=== PATIENT | female | born 1945 | race Caucasian/White ===

== ENCOUNTER 2019-08-10 15:39 | Outpatient (CLI) | payer MEDICARE, OTHER, SELFPAY ==
--- NOTE | 2019-08-10 15:45 | USR_ITS ---
PROCEDURE INFORMATION: Exam: US Retroperitoneal Complete. Exam date and time: 08/10/2019 4:46 PM Age: 73 years old Clinical indication: Condition or disease; Kidney or ureter condition; Cyst of kidney; Additional info: Renal cyst TECHNIQUE: Imaging protocol: Real-time ultrasound of the retroperitoneum with image documentation. Complete exam. COMPARISON: No relevant prior studies available. FINDINGS: The size and morphology of both kidneys is normal. The echogenicity is normal. No hydronephrosis. No mass. No perinephric fluid collections. Right kidney: Right kidney 9.8 x 4.5 x 4.6 cm. Left kidney: Left kidney 9.9 x 4.6 x 3.9 cm Aorta: Visualized portions of the aorta non-aneurysmal Bladder: Non-distended bladder. No free fluid in the pelvis. US/US renal BI* [id number] IMPRESSION: Unremarkable renal ultrasound
== END 2019-08-10 15:40 | disposition home or self-care (01) ==
PROVIDERS: Family Provider Student in an Organized Health Care Education/Training Program; PCP Student in an Organized Health Care Education/Training Program; Visit Provider Student in an Organized Health Care Education/Training Program
DX: N28.1 Cyst of kidney, acquired (principal)
CPT/HCPCS: 76770

== ENCOUNTER → 2019-08-17 14:22 | Outpatient (BNVA) | payer MEDICARE, OTHER, SELFPAY | PROVIDERS: Family Provider Student in an Organized Health Care Education/Training Program; PCP Student in an Organized Health Care Education/Training Program; Visit Provider Urology | DX: N28.9 Disorder of kidney and ureter, unspecified (principal); N99.89 Other postprocedural complications and disorders of genitourinary system | CPT/HCPCS: 81001 ==

== ENCOUNTER 2019-09-13 10:33 | Observation (INO) | payer MEDICARE, OTHER, SELFPAY ==
[2019-09-12 11:28] VITALS: BMI 33.3
--- NOTE | 2019-09-12 12:06 | ANES.PREANE2 ---
Pre-Anesthetic Assessment Pre-Anesthetic Assessment: Height/Weight: Height 1.57 m Weight 82.724 kg Preop Diagnosis: Lumbar postlaminectomy syndrome Proposed Procedure: Operation Date: 09/13/19 08:10 Proposed Procedures p Dorsal Column Stimulator Insertion 17267 M96.1(Bilateral) - Humble Ramos MD Exam: Pre-Anes Outpt Exam: alert, oriented x 3, clear to auscultation bilaterally and regular rate & rhythm Airway: Submandibular: WNL Cervical ROM: WNL MP: 1 CV/HEM: CV/HEM: HTN Comments: rx'd 42years stress test '05 negative GI: GI: GERD Comments: controlled with Protonix Metabolic: Metabolic: DM Comments: rx'd x 10y normally 140-220 Musc/skel: Musc/skel: Lower Back Pain Comments: left worse than right radiculopathy Anesthetic Plan: ASA status: III Anesthesia: MAC PFSH Anesthesia PFSH: Medical History (Updated 08/28/19 @ 12:23 by Humble Ramos MD) GERD (gastroesophageal reflux disease) (Acute) Hypertension (Acute) Lesion of right [place] kidney (Acute) Lumbar disc disease (Acute) Lumbar postlaminectomy syndrome (Acute) Type 2 diabetes mellitus (Acute) Surgical History (Updated 08/28/19 @ 12:23 by Humble Ramos MD) History of back surgery (Chronic) 2003; [place], [place]; T11-L1 laminectomies. 1996; [place]; right L3-L4, L4-L5 decompression. Social History Smoking and tobacco status: never smoked Alcohol intake: never Lives independently: Yes Household members: spouse Marital status: Current occupational status: retired Current occupation: retired History of recent travel: No Female Reproductive History: Date of last menstrual period: 09/10/09 Data Anesthesia Cardiac Studies: No Data to Display
[2019-09-13] VITALS (15 sets, daily range): BP systolic 117–135; BP diastolic 50–86; PULSE 53–84; RESP 12–20; TEMP 36.4–36.6; O2SAT 95–100
--- NOTE | 2019-09-13 | SCC_ITS ---
Procedure Done: 1. Thoracic laminotomy with placement of intraspinal, epidural paddle electrode arrays. 2. Placement of subcutaneous programmable pulse generator with connection to intraspinal epidural electrode arrays. Implants: [employer] CoverEdge X 32 marketing team lead [employer] WaveWriter pulse generator 13.9 seconds of fluoroscopic guidance, for a cumulative dose of 6.58 mGy, was provided to Dr. Ramos by the radiology department. C-arm images of the thoracic spine were saved for the patient's permanent record. VIANNEY
--- NOTE | 2019-09-13 | XR_ITS ---
WS: [id number] Thoracic spine, AP view with C-arm fluoroscopy in the OR, 09/13/2019 Clinical Data: DORSAL COLUMN STIMULATOR Comparison: None. Findings: The dorsal column stimulator wires are overlying the the inferior aspect of the T7 vertebral body abiodun n to the midportion of the T10 vertebral body. XR/XR thoracic spine 1V [id number] Impression: Dorsal column stimulator wires overlying thoracic vertebral bodies T7-T10
--- NOTE | 2019-09-13 07:08 | P.HPUD_ITS ---
H&P update H&P Update: DATE OF SURGERY/PROCEDURE: 09/13/19 DATE H&P PERFORMED: 10/25 H&P UPDATE INFORMATION: H&P completed within last 30 days and H&P to be scanned into chart PREOP DIAGNOSIS: Lumbar postlaminectomy syndrome PRIMARY INDICATION FOR PROCEDURE: Intractable back and bilateral lower extremity pain PLANNED PROCEDURE: Operation Date: 09/13/19 08:10 Proposed Procedures Placement of intraspinal, epidural paddle electrode arrays and subcutaaneous programmable pulse generator - Humble Ramos MD Full H&P Perinent History: Medical/Surgical History: Medical History (Updated 08/28/19 @ 12:23 by Humble Ramos MD) GERD (gastroesophageal reflux disease) (Acute) Hypertension (Acute) Lesion of right [place] kidney (Acute) Lumbar disc disease (Acute) Lumbar postlaminectomy syndrome (Acute) Type 2 diabetes mellitus (Acute) Family History: Family History (Updated 07/13/19 @ 14:39 by [facility]) Other No pertinent family history Social History: Social History Smoking and tobacco status: never smoked Alcohol intake: never Lives independently: Yes Household members: spouse Marital status: Current occupational status: retired Current occupation: retired History of recent travel: No
[2019-09-13 07:11] LABS: Glucose Point of Care 160 mg/dL (70-110)
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
[2019-09-13] MEDS: vancomycin 1,000 MG in sodium chloride 0.9% 250 ML 250 MG IV (07:19)
[2019-09-13] MEDS: sodium chloride 0.9% 1,000 ML 30 ML IV (07:20)
--- NOTE | 2019-09-13 07:20 | P.ANESUD_ITS ---
Pre-Anesthetic Update Pre-Anesthetic Assessment: Date of Surgery/Procedure: 09/13/19 Preop Cyn gnosis: Lumbar postlaminectomy syndrome Proposed Procedure: Operation Date: 09/13/19 08:10 Proposed Procedures p Dorsal Column Stimulator Insertion 31372 M96.1(Bilateral) - Humble Ramos MD Any changes to Pre-Anesthetic Assessment?: No Last Intake: Intake Last Liquid Date 09/13/19 Last Liquid Time 05:00 Last Solid Date 09/12/19 Last Solid Time 23:00 Labs Last 48hrs: Laboratory Results - last 48 hr 09/13/19 07:08 POC Glucose 160 Vitals: Temperature 97.7 F 09/13/19 06:49 Temperature Source Temporal Artery S can 09/13/19 06:49 Pulse Rate 61 09/13/19 06:49 Respiratory Rate 18 09/13/19 06:49 Blood Pressure 123/79 09/13/19 06:49 Blood Pressure Sugar n 93 09/13/19 06:49 Pulse Oximetry 97 09/13/19 06:49 Oxygen Delivery Me thod 09/13/19 06:49 Other Pertinent Information: Other Pertinent Information: took metoprolol this am Cardiac Studies: No Data to Display
--- NOTE | 2019-09-13 08:29 | P.OP_ITS ---
Brief Operative Note: Date of procedure: 09/13/19 Pre-op diagnosis: Lumbar postlaminectomy syndrome Post-op diagnosis: same Procedure Done: Thoracic laminotomy for placement of intraspinal, epidural paddle electrode arrays, placement of subQ pulse generator Surgeon: Humble Ramos Estimated blood loss (mL): 25 Complications: None. Post-op Plan: PACU, then surgical j[place]ston Condition: stable Disposition: PACU Coding Level of Care Code Acute Executive Meeting Manager for Vera Willingham
--- NOTE | 2019-09-13 09:17 | SUR.OPER ---
Family Notified Of Patient's Status Via Phone.
--- NOTE | 2019-09-13 10:16 | SUR.OPER ---
Family Notified Of Patient's Status Via Phone.
--- NOTE | 2019-09-13 10:44 | SUR.PHASEI ---
1040- RECEIVED PATIENT IN PACU FROM OR VIA [facility]. RESP ARE EVEN AND NONLABORED. SIMPLE MASK APPLIED AT 6LPM, SAT 100%. SHE IS AROUSABLE BUT LETHARGIC. DRESSING TO BACK IS DRY AND INTACT. NO S/S PAIN OR NAUSEA.
--- NOTE | 2019-09-13 11:41 | SUR.PHASEI ---
1103- TRANSFERRED PATIENT FROM PACU TO . RESP ARE EVEN AND NONLABORED. SAT 96% WITH ROOM AIR. SHE IS AWAKE AND ALERT. DRESSING TO BACK X2 DRY AND INTACT. SHE REPORTS PAIN TO BACK IMPROVES WITH LAYING ON HER SIDE. DENIES NAUSEA. UPON ARRIVAL TO ROOM SHE IS ASSISTED TO AMBULATE X2 STAFF TO THE BED. SHE TOLERATES THIS FAIR WITH S/S MODERATE TO SEVERE PAIN WITH REPOSITIONING. THIS IMPROVES WITH REST. VITALS NORMAL WHILE SHE RETURNS TO RESTING ON HER LEFT SIDE IN BED. TRANSITION OF CARE TO MELISSA ROSALES
[2019-09-13] MEDS: ketorolac 30 mg/mL INJ 15 MG IVP (11:46)
[2019-09-13] MEDS: lactated ringers 1,000 ML 90 ML IV (11:46)
--- NOTE | 2019-09-13 14:12 | P.DS_ITS ---
Discharge Providers Date of Admission: 09/13/19 10:33 Date of Discharge: September 13, 2019 Attending Provider at Admission: Humble Basilio MD Attending Provider at Discharge: Humble Basilio MD Primary Care Provider: Jhonatan Stern Diagnoses at Discharge Discharge Diagnosis (1) Lumbar postlaminectomy syndrome: Status: Acute Problem details: Patient is doing well after thoracic spinal cord stimulator implantation via laminotomy performed earlier today. She appears reasonable for discharge home, as desired. Reason for Visit Reason for Visit: Reason For Visit: Lumbar Post Laminectomy Sydnrome Brief History: The patient is a 73-year-old female with chronic low back and bilateral lower extremity pain that failed to respond adequately to conservative treatment measures. She had undergone prior lower thoracic and lumbar surgeries. She complained of low back pain and bilateral lower extremity pain. She underwent diagnostic work-up, including thoracic and lumbar spine imaging. Conservative treatment trials failed to provide adequate lasting symptom relief. She obtained marked relief of chronic low back and lower extremity pain during a percutaneous trial of thoracic spinal cord stimulation. After review of the diagnostic and treatment options with the risks/potential benefits/rationale for each, the patient requested to proceed with placement of epidural paddle electrode arrays and a subcutaneous programmable pulse generator for chronic spinal cord stimulation therapy. Hospital Course Hospital Course: The patient underwent thoracic laminotomy with placement of intraspinal, epidural paddle lead arrays and placement of subcutaneous programmable pulse generator on 09/13/2019. She tolerated the procedure well. She completed preoperative and postoperative intravenous antibiotics. She was ambulatory, voiding, and tolerating diabetic diet prior to requested discharge home on the afternoon of the date of surgery. Physical Exam Const: COMMON NORMALS: no apparent distress GENERAL APPEARANCE: cooperative and comfortable Neck/C-Spine: COMMON NORMALS: supple and no JVD GENERAL: Yes trachea mi dline Resp: COMMON NORMALS: normal respiratory effort EFFORT & INSPECTION: Yes able to speak in complete sentences and No stridor Cardio: COMMON NORMALS: no JVD Back/Pelvis: BACK IMAGE (FEMALE): 1. surgical incision 2. surgical incision Neuro: COMMON NORMALS: moves all extremities GAIT: Yes other (ambulatory) Psych: ATTITUDE: Yes calm and Yes engaged ACTIVITY/MOTOR BEHAVIOR: Yes appropriate eye contact ATTENTION/CONCENTRATION: Yes attention grossly intact INSIGHT: insight good JUDGEMENT: judgment good Skin: WOUNDS: Yes surgical site (Surgical site dressings clean/dry/intact) Discharge Data Data Completed and Pending: Completed Studies During Hospitalization Category Date Time Status XR thoracic spine 1V 30116 Routine Exams 09/13/19 Completed Addt'l Data from Hospital Stay: Intraoperative fluoroscopy, with paddle lead extending from T6-T7 across T8 in a near midline position. Procedures Performed: Thoracic laminotomy for placement of intraspinal epidural paddle electrode arrays ([employer] CoverEdge X32 certified ophthalmic surgical assistant. Placement of subcutaneous programmable pulse generator ([employer] SpectraWaveWriter). Intravenous antibiotics. Vitals: Last Vital Signs Temp 97.6 F 09/13/19 18:07 Pulse 54 L 09/13/19 18:07 Resp 18 09/13/19 18:07 BP 117/71 09/13/19 18:07 Pulse Ox 98 09/13/19 18:07 Discharge Plan Discharge Patient Disposition: Home, Self-Care Condition: Stable Prescriptions: New tramadol 50 mg Tablet 50 - 100 mg PO Q4H PRN (Reason: Moderate Pain) Qty: 30 RF: 0 Continued gabapentin 300 mg capsule 300 mg PO DAILY PRN (Reason: pain) RF: 0 naproxen 250 mg tablet 250 mg PO BID PRN (Reason: Pain) RF: 0 metoprolol succinate 100 mg tablet extended release 24 hr 100 mg PO DAILY RF: 0 losartan-hydrochlorothiazide 50-12.5 mg tablet 1 tab PO DAILY RF: 0 pantoprazole 40 mg tablet,delayed release (DR/EC) 40 mg PO DAILY RF: 0 Farxiga 10 mg tablet 10 mg PO QAM RF: 0 Toujeo Max U-300 SoloStar 300 unit/mL (3 mL) insulin pen 75 unit SUBCUT Q24H RF: 0 furosemide 40 mg tablet 40 mg PO QAM RF: 0 cinnamon bark 500 mg capsule 500 mg PO BID RF: 0 red yeast rice 600 mg capsule 600 mg PO BID RF: 0 cholecalciferol (vitamin D3) 1,000 unit capsule 1,000 unit PO DAILY RF: 0 magnesium 30 mg tablet 500 mg PO DAILY RF: 0 coenzyme Q10 [Co Q-10] 10 mg capsule 10 mg PO DAILY RF: 0 vitamin B complex [B Complex-Vitamin B12] Tablet 1 tab PO QAM RF: 0 Cholest Off 450 mg tablet 450 mg PO DAILY RF: 0 PreserVision tablet 1 tab PO DAILY RF: 0 Discharge Orders: Discharge Order (Routine); Ordered 09/13/19 Ordered By: Humble Basilio Referrals: Humble Basilio MD [Physician] - 2 weeks (please call for appointment with dr basilio) Discharge Diet: Diabetic Discharge Activity: Limit activity as instructed Patient Instructions: Back Pain, Tramadol (By mouth), Spinal Cord Stimulator Placement (DC) Activity Restrictions/Additional Instructions: Activity - No driving until office followup visit - No lifting/pushing/pulling over 10 pounds - Avoid twisting or bending - Walking is encouraged - Home exercise per physical therapist - You may engage in sexual intercourse at any time as long as it is comfortable for you - Check with your doctor before returning to work. Notify your doctor if you develop: - temperature of 101.5 degrees F. or higher - redness or swelling of the incision - Foul drainage - increasing pain - increasing numbness or tingling in the arms or legs - New or increasing problems with vision, balance, memory, speaking, nausea or vomiting Hygiene: - Showering is okay - No tub baths or soaking Other: Remove outer bandage 3 days after surgery. If you have paper strips, leave in place until they fall off on their own. If you have stitches, keep your incision dry until the stitches are removed. Your doctor's office is available to answer any questions from 7 AM to 5:00 PM, Tuesday through at [phone]. After hours, go to the emergency room at [facility] or call 911 for assistance. Discharge Date/Time: 09/13/19 20:31 Discharge Attestations Time Spent in Discharge Care*: other (postop global) Quality Metrics Clinical Quality Measures During this hospital stay, did patient experience: None Coding Level of Care Code Acute Packing Machine Feeder for Chg Fwd Exam Problem Focused Diagnoses Lumbar postlaminectomy syndrome M96.1 Comment postop global
--- NOTE | 2019-09-13 18:00 | P.OP_ITS ---
Operative Report Date of procedure: September 13, 2019 Pre-op Diagnosis: Lumbar postlaminectomy syndrome Post-op diagnosis: same Procedure Done: 1. Thoracic laminotomy with placement of intraspinal, epidural paddle electrode arrays. 2. Placement of subcutaneous programmable pulse generator with connection to intraspinal epidural electrode arrays. Implants: [employer] CoverEdge X 32 surgical oncologist [employer] Spectra WaveWriter pulse generator Surgeon: Humble Ramos Anesthesia: MAC Estimated blood loss (mL): 25 IV fluids (mL): 800 Complications: None Condition: stable Disposition: PACU Brief History: The patient is a 73-year-old female with chronic low back and bilateral lower extremity pain that failed to respond adequately to conservative treatment measures. She had undergone prior lower thoracic and lumbar surgeries. She complained of low back pain and bilateral lower extremity pain. She underwent diagnostic work-up, including thoracic and lumbar spine imaging. Conservative treatment trials failed to provide adequate lasting symptom relief. She obtained marked relief of chronic low back and lower extremity pain during a percutaneous trial of thoracic spinal cord stimulation. After review of the diagnostic and treatment options with the risks/potential benefits/rationale for each, the patient requested to proceed with placement of epidural paddle electrode arrays and a subcutaneous programmable pulse generator for chronic spinal cord stimulation therapy. Procedure: After routine preoperative evaluation and informed consent were obtained, the patient was taken to the Operating Room and positioned prone on the operating table. Chest and pelvic bolsters were positioned to ensure the abdomen was decompressed. All pressure points were padded. The patient reported the position to be comfortable. She was maintained under varying levels of intravenous sedation by Anesthesia personnel. The planned right flank pulse generator placement incision was marked with a skin marker. A planned midline posterior thoracic incision was likewise marked, after intraoperative localization with fluoroscopy. The patient's lead location during the successful percutaneous trial was utilized to guide placement for the permanent implant. The posterior thorax and flanks were scrubbed with Betadine and prepped with DuraPrep. Sterile towels and drapes were applied, and an [place] surgical barrier was placed. The proposed midline thoracic incision was infiltrated with 1% Xylocaine with epinephrine. A skin incision was made and carried down into the subcutaneous tissues. The deep fascial plane was identified and divided in the midline. A right-sided subperiosteal dissection was carried down along the laminae, centered at what appeared by intraoperative fluoroscopy to be T9. Deep self- retaining retractors were placed to maximize the operative exposure. A laminotomy was fashioned with Kerrison rongeurs. Ligamentum flavum was resected at the base of the laminotomy site. The hockey-stick dural separator was advanced into the dorsal epidural space without resistance, and then removed. A [employer] CoverEdge X 32, 70 cm, 4 x 8 surgical oncologist was provided by the company utility sales representative, who indicated a wider area of coverage was recommended for this patient than could be obtained with the standard lead. A laminotomy was therefore fashioned at the adjacent caudal level to accommodate the extended lead. Ligament was resected with Kerrison rongeurs. The hockey stick dural separator was used to explore the epidural space, and the paddle lead was then advanced into the dorsal epidural space. Intraoperative fluoroscopy suggested a slightly angled course, near midline position of the lead with the cephalad extent crossing the T6/T7 interspace and the caudal extend crossing T8/T9. Anesthesia personnel diminished the patient's sedation until she was awake and conversant. The lead tails were connected to extension cables, and intraoperative spinal cord stimulation was performed. The patient reported good paresthesia coverage of her chronic low back and lower extremity pain sites. Lead impedances were good. The patient's sedation was deepened. The wound was copiously irrigated with sterile saline and antibiotic irrigation. The fascia was closed utilizing 2-0 Vicryl Plus in a simple interrupted fashion. CLIK lead anchors were placed over 2 of the 4 lead tails, and secured at the fascial entry point with Fixate suture devices. The lead - anchor - fascial interfaces were manipulated and found to be secure. Intraoperative fluoroscopy verified a stable lead position. Strain relief loops of the lead tails were fashioned within the subcutaneous space at the thoracic incision site. The right flank incision site was prepared by infiltration with 1% Xylocaine with epinephrine. An incision was then made, and a subcutaneous pocket was created of adequate size to accommodate the pulse generator. The subcutaneous tunneling tool was utilized to create a subcutaneous passage between the thoracic and right flank incisions. Lead tails were advanced through the subcutaneous tunnel utilizing the tunneling tool. The lead tails were advanced into the appropriate ports on the [employer] WaveWriter pulse generator. An impedance check demonstrated no lead faults. The connection sites were secured with set screws and the torque wrench. The connection sites were manipulated and found to be secure. The right flank subcutaneous pocket and the thoracic incision site were again copiously irrigated with antibiotic irrigation. Hemostasis was ensured. The pulse generator was placed within the right flank subcutaneous pocket with excess lead coiled deep/adjacent to the device. The pulse generator was again interrogated, with acceptable impedance and no evidence of device malfunction. The pulse generator was anchored to the superficial fascia with a single Silk suture. The site was again irrigated with antibiotic irrigation. Wound closure was performed in multiple layers with 2-0 Vicryl Plus simple interrupted closure of the dermis. Intraoperative fluoroscopy again verified a stable lead position. Final skin closure was performed at both incision sites with 3-0 Vicryl Plus in a running subcuticular pattern. Steri-Strips were applied, and sterile dressings were placed. The patient was then rotated onto the Recovery Room cart in the supine position. She tolerated the procedure well. All sponge, needle and instrument counts were correct at the completion of the procedure.
[2019-09-13] MEDS: TRAMadol 50 mg Tablet PO (19:17)
--- NOTE | 2019-09-13 20:28 | PC.NURSE ---
pt taken via [facility] to personal vechile with dtr at side, one rx had been given to dtr to go fill. Dressing to back dry and intact, iv removed. No complaints of pain. dc paperwork given by Luly Paredes voiced understanding.
== END 2019-09-13 20:31 | disposition home or self-care (01) ==
LOC: MEDSURG 10:35
PROVIDERS: Admitting Provider Specialist; Family Provider Student in an Organized Health Care Education/Training Program; PCP Student in an Organized Health Care Education/Training Program; Visit Provider Specialist
PROC: (CPT 63655; principal; 2019-09-13 08:10)
DX: M96.1 Postlaminectomy syndrome, not elsewhere classified (principal); I10 Essential (primary) hypertension; E11.9 Type 2 diabetes mellitus without complications; K21.9 Gastro-esophageal reflux disease without esophagitis; Z83.3 Family history of diabetes mellitus
CPT/HCPCS: 63655; 63685; 12345; 36416; 72020; 76000; 82962; 94664; 96365; 96375; C1820; C1883; G0378; J0131; J0690; J1885; J2001; J2250; J2405; J2704; J3010; J3370; J3490; J7030; J7050

== ENCOUNTER → 2019-10-24 13:08 | Outpatient (BNVA) | payer MEDICARE, OTHER, SELFPAY | PROVIDERS: Family Provider Student in an Organized Health Care Education/Training Program; PCP Student in an Organized Health Care Education/Training Program; Visit Provider Obstetrics & Gynecology | DX: R93.89 Abnormal findings on diagnostic imaging of other specified body structures (principal); N84.0 Polyp of corpus uteri | CPT/HCPCS: 76830 ==

== ENCOUNTER 2019-10-30 07:38 | Day surgery (SDC) | payer MEDICARE, OTHER, SELFPAY ==
--- NOTE | 2019-10-29 08:47 | ECG_ITS ---
Measurements Intervals Wilsey Rate: 60 P: 41 ME: 154 QRS: -43 QRSD: 150 T: -15 QT: 460 QTc: 463 SINUS RHYTHM MARKED LEFT AXIS DEVIATION [QRS AXIS < -30] RIGHT BUNDLE BRANCH BLOCK [120+ ms QRS DURATION, UPRIGHT V1, 40+ ms S IN I/aVL/V4/V5/V6] No previous ECG available for comparison Electronically Signed On 10-29-2019 19:28:04 CDT by Chalino Garcia M.D. [email or web address]
[2019-10-29 09:13] LABS: Basophils # 0.1 10^3/uL (0.0-0.1); Basophils % 0.5 %; Eosinophils # 0.5 10^3/uL (0.0-0.8); Eosinophils % 5.1 %; Hematocrit 39.7 % (37.0-47.0); Hemoglobin 12.6 g/dL (11.5-15.3); Lymphocytes # 1.7 10^3/uL (0.8-4.8); Lymphocytes % 17.9 %; Mean Corpuscular HGB Conc 31.7 g/dL (30.0-36.0); Mean Corpuscular Hemoglobin 28.5 pg (28.0-34.0); Mean Corpuscular Volume 89.8 fL (81-99); Mean Platelet Volume 10.1 fL (7.4-10.4); Monocytes # 0.7 10^3/uL (0.2-0.9); Monocytes % 7.8 %; Neutrophils # 6.3 10^3/uL (1.8-7.7); Neutrophils % 68.2 %; Nucleated Red Blood Cells % 0 %; Platelet Count 254 10^3/cmm (130-400); Red Blood Count 4.42 10^6/uL (4.1-5.3); Red Cell Distribution Width 14.6 % (12.1-15.1); White Blood Count 9.2 10^3/uL (4.0-10.0)
[2019-10-29 09:32] LABS: Anion Gap 17.4 (5-19); Blood Urea Nitrogen 31 mg/dL (8-23); Calcium 9.7 mg/dL (8.5-10.5); Carbon Dioxide 28 mmol/L (22-29); Chloride 93 mmol/L (98-107); Creatinine Clr Calc Pharmacy 39.7385; Glucose 306 mg/dL (65-115); Osmolality Calculated 289 mOsm/kg (285-295); Potassium 3.4 mmol/L (3.5-5.1); Sodium 135 mmol/L (136-145)
--- NOTE | 2019-10-29 09:38 | P.ANESASSM_ITS ---
Pre-Anesthetic Assessment Pre-Anesthetic Assessment: Height/Weight: Height 1.57 m Weight 85.729 kg Preop Diagnosis: Endometrial polyps Proposed Procedure: Operation Date: 10/30/19 10:50 Proposed Procedures p Hysteroscopy w/ Myosure and polpectomy paracervical block 52372 [id number] 6435 N84.0(Not Applicable) - Sanya Augustine MD s Dilation And Curettage (D&C)(Not Applicable) - Sanya Augustine MD Familial anesthetic complications: None Social: Social History: No alcohol and No tobacco Exam: Pre-Anes Outpt Exam: alert, oriented x 3, clear to auscultation b ilaterally and regular rate & rhythm Airway: Cervical ROM: WNL and Other (herniated ) MP: 3 Additional comments: missing Pulmonary: Pulmonary: None reported CV/HEM: CV/HEM: HTN : : None reported Hepatic: Hepatic: None reported GI: GI: GERD Metabolic: Metabolic: DM and Thyroid (not on replacement) Musc/skel: Comments: SCS implant Neuropsych: Neuropsych: None reported Anesthetic Plan: ASA status: 3 Anesthesia: General Risk of > 500 ml blood loss (7ml/kg in children): No PFSH Anesthesia PFSH: Social History Smoking and tobacco status: never smoked Alcohol intake: never Current occupation: retired Female Reproductive History: Date of last menstrual period: 09/10/09 Data Anesthesia CBC & Chem 7: 10/29/19 08:55 10/29/19 08:55 Other Labs: Laboratory Results - last 48 hr 10/29/19 10/29/19 08:55 08:55 WBC 9.2 RBC 4.42 Hgb 12.6 Hct 39.7 MCV 89.8 MCH 28.5 MCHC 31.7 RDW 14.6 Plt Count 254 MPV 10.1 Neut % (Auto) 68.2 Lymph % (Auto) 17.9 [place] % (Auto) 7.8 Eos % (Auto) 5.1 Baso % (Auto) 0.5 Neut # (Auto) 6.3 Lymph # (Auto) 1.7 [place] # (Auto) 0.7 Eos # (Auto) 0.5 Baso # (Auto) 0.1 Nucleated RBC % (auto) 0 Nucleated RBCs # 0.0 Sodium 135 L Potassium 3.4 L Chloride 93 L Carbon Dioxide 28 Anion Gap 17.4 BUN 31 H Creatinine 1.3 H Glucose 306 H Calculated Osmolality 289 Calcium 9.7 Cardiac Studies: No Data to Display
[2019-10-30 07:50] VITALS: BP 135/56; PULSE 60; RESP 18; TEMP 36.6; O2SAT 96
[2019-10-30] MEDS: sodium chloride 0.9% 1,000 ML 30 ML IV (08:35)
--- NOTE | 2019-10-30 08:55 | P.HPUD_ITS ---
Surgery/Procedure H&P Update DATE OF PROCEDURE: October 30, 2019 DATE H&P PERFORMED: 10/24/19 H&P UPDATE INFORMATION: I have reviewed H&P completed within last 30 days, I have examined patient prior to procedure, No changes to prior documentation and H&P is in [facility] EMR on date indicated PREOP DIAGNOSIS: Endometrial polyps PLANNED PROCEDURE: Operation Date: 10/30/19 09:10 Proposed Procedures p Hysteroscopy w/ Myosure and polpectomy paracervical block 98750 [id number] 6435 N84.0(Not Applicable) - Sanya Augustine MD s Dilation And Curettage (D&C)(Not Applicable) - Sanya Augustine MD
--- NOTE | 2019-10-30 09:02 | P.ANESUD_ITS ---
Pre-Anesthetic Update Pre-Anesthetic Assessment: Date of Surgery/Procedure: 10/30/19 Preop Cyn gnosis: Endometrial polyps Proposed Procedure: Operation Date: 10/30/19 09:10 Proposed Procedures p Hysteroscopy w/ Myosure and polpectomy paracervical block 18865 [id number] 6435 N84.0(Not Applicable) - Sanya Augustine MD s Dilation And Curettage (D&C)(Not Applicable) - Sanya Augustine MD Last Intake: Intake Last Liquid Date 10/30/19 Last Liquid Time 06:00 Last Solid Date 10/29/19 Last Solid Time 17:30 Labs Last 48hrs: Laboratory Results - last 48 hr 10/29/19 10/29/19 08:55 08:55 WBC 9.2 RBC 4.42 Hgb 12.6 Hct 39.7 MCV 89.8 MCH 28.5 MCHC 31.7 RDW 14.6 Plt Count 254 MPV 10.1 Neut % (Auto) 68.2 Lymph % (Auto) 17.9 [place] % (Auto) 7.8 Eos % (Auto) 5.1 Baso % (Auto) 0.5 Neut # (Auto) 6.3 Lymph # (Auto) 1.7 [place] # (Auto) 0.7 Eos # (Auto) 0.5 Baso # (Auto) 0.1 Nucleated RBC % (a uto) 0 Nucleated RBCs # 0.0 Sodium 135 L Potassium 3.4 L Chloride 93 L Carbon Dioxide 28 Anion Gap 17.4 BUN 31 H Creatinine 1.3 H Glucose 306 H Calculated Osmolal ity 289 Calcium 9.7 Vitals: Temperature 97.8 F 10/30/19 07:50 Temperature Source Temporal Artery S can 10/30/19 07:50 Pulse Rate 60 10/30/19 07:50 Pulse Rhythm 10/30/19 07:53 Pulse Strength 3+ Normal 10/30/19 07:53 Respiratory Rate 18 10/30/19 07:50 Blood Pressure 135/56 10/30/19 07:50 Blood Pressure Sugar n 82 10/30/19 07:50 Pulse Oximetry 96 10/30/19 07:50 Oxygen Delivery Me thod 10/30/19 07:53 Cardiac Studies: No Data to Display
[2019-10-30 09:28] LABS: Glucose Point of Care 290 mg/dL (70-110)
[2019-10-30 09:41] VITALS: BP 103/48; PULSE 65; RESP 16; TEMP 36.2; O2SAT 95
--- NOTE | 2019-10-30 09:46 | PM.OP ---
Operative Report Date of procedure: October 30, 2019 Pre-op Diagnosis: Endometrial polyps Post-op Diagnosis: Endometrial polyps Procedure Done: Hysteroscopy with polypectomy with MyoSure, Paracervical block Specimens removed/disposition: Endometrial polyps and endometrial lining Surgeon: Sanya Augusitne Anesthesia: MAC and Other (Paracervical block) Estimated blood loss (mL): 2 IV fluids (mL): 500 Complications: None Findings: Second to third-degree cystocele under anesthesia. Second-degree uterine prolapse. 5 polyps identified within the endometrial cavity arising from various areas and of various sizes. Brief History: Patient is a 74-year-old white female who had presented to the office with an incidental finding of a thickened endometrial lining. This was found on MRI. Ultrasound was performed which revealed an 8.5 x 4.2 x 6.0 cm uterus with a 1.5 cm endometrial stripe. Hysteroscopy in the office identified at least 3 polyps within the endometrial cavity. Discussed with patient that these needed to be removed due to the potential for cancer. Questions were answered. She is presenting for hysteroscopy with polypectomy with MyoSure. Procedure: The patient was taken to the operating room where IV sedation was started. She was prepped and draped in the usual sterile fashion in the dorsal supine position with legs in To[place] style stirrups. Sequential compression boots had been placed prior to starting the case. Patient had voided just before coming to the operating room. Exam under anesthesia was performed and the patient was noted to have second to third-degree cystocele with second-degree uterine prolapse. A weighted speculum was placed in the vagina and the cervix was grasped with a single-tooth tenaculum. A paracervical block was performed with a total of 12 mL of 2% lidocaine with epinephrine used. The cervix was serially dilated until a operative hysteroscope could be passed. Crystalloid solution was used as a distention media. The endometrial cavity was inspected multiple polyps identified within the endometrial cavity of various sizes and arising from various locations. Using MyoSure device, the polyps were all removed from the endometrial cavity. A total of 5 polyps were identified. Endometrial lining was also sampled using the MyoSure. The tenaculum was removed and there was minimal bleeding from the tenaculum site. Patient tolerated the procedure well. Sponge and needle counts were correct. DRAINS: None POSTOPERATIVE STATUS: The patient was transferred to the recovery room in satisfactory condition DISPOSITION: Discharge to home when criteria was met. FOLLOWUP APPOINTMENT: Followup appointment had been scheduled on 11/09/2019 in my office. MEDICATIONS: She received prescriptions for: Tramadol 50 mg, 1 to 2 tablets every 6 hours as needed for pain, #10, 0 refills She may resume her usual home medications.
[2019-10-30 10:12] VITALS: BP 121/78; PULSE 58; TEMP 36.4; O2SAT 99
== END 2019-10-30 10:40 | disposition home or self-care (01) ==
PROVIDERS: Family Provider Student in an Organized Health Care Education/Training Program; PCP Student in an Organized Health Care Education/Training Program; Visit Provider Obstetrics & Gynecology
PROC: 0UDB8ZZ Extraction of Endometrium, Via Natural or Artificial Opening Endoscopic (ICD-10-PCS; CPT 58558; principal; 2019-10-30 09:10)
PROC: (CPT 58120; 2019-10-30 09:10)
DX: N84.0 Polyp of corpus uteri (principal); Z79.82 Long term (current) use of aspirin; K21.9 Gastro-esophageal reflux disease without esophagitis; I10 Essential (primary) hypertension; E11.9 Type 2 diabetes mellitus without complications; Z79.4 Long term (current) use of insulin
CPT/HCPCS: 58558; 12345; 36415; 36416; 80048; 82962; 85025; 88305; 93005; J2001; J2704; J3010; J7030

== ENCOUNTER → 2019-11-27 10:51 | Outpatient (BNVA) | payer MEDICARE, OTHER, SELFPAY | PROVIDERS: Family Provider Student in an Organized Health Care Education/Training Program; PCP Student in an Organized Health Care Education/Training Program; Visit Provider Specialist | DX: R29.90 Unspecified symptoms and signs involving the nervous system (principal); F07.81 Postconcussional syndrome; G43.711 Chronic migraine without aura, intractable, with status migrainosus; M47.812 Spondylosis without myelopathy or radiculopathy, cervical region | CPT/HCPCS: 99213 ==

== ENCOUNTER 2020-02-19 07:55 | Outpatient (CLI) | payer MEDICARE, OTHER, SELFPAY ==
--- NOTE | 2020-02-19 07:15 | US_ITS ---
WS: [id number] ULTRASOUND RENAL TECHNIQUE: Ultrasound examination of both kidneys. CLINICAL INFORMATION: Renal lesion COMPARISON: None. FINDINGS: RIGHT: Right kidney is normal in size and appearance. Echogenicity: Normal. Cortical thickness: 1.0 cm; Normal. Hydronephrosis: None. Perinephric fluid: None. Right kidney measures: 9.6 cm x 4.0 cm x 4.5 cm. LEFT: Left kidney is normal in size and appearance. Echogenicity: Normal. Cortical thickness: 1.2 cm; Normal. Hydronephrosis: None. Perinephric fluid: None. Left kidney measures: 10.4 cm x 3.2 cm x 4.7 cm. Normal visualized aorta. Normal bladder. US/US renal BI* [id number] IMPRESSION: 1. No hydronephrosis in either kidney. 2. Normal bladder.
--- NOTE | 2020-02-19 08:07 | XRR_ITS ---
PROCEDURE INFORMATION: Exam: XR Abdomen, 1 View Exam date and time: 02/19/2020 8:19 AM Age: 74 years old Clinical indication: Condition or disease; Other: Lesion right [place] kidney; Prior surgery; Surgery date: 6+ months; Surgery type: Stimulator spine; Patient HX: Follow up; Additional info: Stones TECHNIQUE: Imaging protocol: XR of the abdomen. Views: Frontal supine view of the abdomen. 1 View. COMPARISON: No relevant prior studies available. FINDINGS: Tubes, catheters and devices: There is a generator device projecting over the right abdomen with the wires extending in a cephalad direction off of the image. Gastrointestinal tract: Large amount of stool in the colon. No dilated gas-filled loops of bowel. Organs: The right kidney is partially obscured by the generator device. Multiple punctate radiodensities project over the left abdomen but extend beyond the margin of the left kidney. These are probably enteric contents. No definite radiopaque renal calculus identified. Vasculature: Multiple phleboliths in the pelvis. Bones/joints: There is multilevel disc degeneration and facet arthropathy in the lumbar spine. XR/XR KUB 56491 IMPRESSION: No definite renal calculus. The right kidney is partially obscured by the generator device.
== END 2020-02-19 07:56 | disposition home or self-care (01) ==
PROVIDERS: Family Provider Student in an Organized Health Care Education/Training Program; PCP Student in an Organized Health Care Education/Training Program; Visit Provider Urology
DX: N28.9 Disorder of kidney and ureter, unspecified (principal); N20.0 Calculus of kidney; R82.81 Pyuria
CPT/HCPCS: 74018; 76770; 80053; 81001; 87077; 87086; 87186

== ENCOUNTER 2020-06-18 06:22 | Outpatient (CLI) | payer MEDICARE, OTHER, SELFPAY ==
[2020-06-18 07:10] LABS: Blood Urea Nitrogen 26 mg/dL (8-23)
[2020-06-18] MEDS: iodixanol 320 mg/mL 100mL Btl IV (07:57)
--- NOTE | 2020-06-18 08:00 | CT_ITS ---
WS: [id number] CT ABDOMEN PELVIS TECHNIQUE: Noncontrast CT of the abdomen and contrast-enhanced CT of the abdomen and pelvis with hipolito nal and sagittal reformatted images. CLINICAL INFORMATION: KIDNEY LESION COMPARISON: Ultrasound February 19, 2020 DLP: 2347.[address] scans at [facility] use at least one of these dose optimization techniques: automat ed exposure control; mA and/or kV adjustment per patient size (includes targeted exams where dose is matched to clinical indication); or iterative reconstruction. FINDINGS: Diffuse fatty infiltration of the liver. Normal portal vein and splenic vein. Normal spleen. Normal G E junction. Lung bases are well aerated. Noncalcified nodule left lower lobe measuring 6 mm. Addition al noncalcified nodule in the lingula measuring 3 mm. Adrenal glands are normal. No hydronephrosis in either kidney. Normal renal parenchymal enhancement. Cortical scarring both kidneys right greater th an left. Both ureters are decompressed. Low-attenuation lesion upper pole right kidney measuring 10 m m. Additional tiny lower pole right renal cyst. Images in the right kidney are degraded due to spinal catheter battery pack. Aortic calcification. Normal caliber abdominal aorta. No evidence of small or large bowel obstruction . No adenopathy in the abdomen or pelvis. No free fluid in the pelvis. Disc space narrowing L3-L4 and L4-L5. Prior laminectomy defects lower thoracic and upper lumbar spine. CT/CT abdomen pelvis wo/w [id number] IMPRESSION: 1. No hydronephrosis in either kidney. Bilateral cortical scarring. 2. Low-attenuation lesion upper pole right kidney measuring 10 mm likely repre sents renal cyst. Images are somewhat degraded due to beam hardening artifact f rom spinal catheter battery pack. 3. Additional tiny right lower pole renal cyst measuring 5 mm. 4. Diffuse fatty infiltration of the liver. 5. No abdominal or pelvic lymphadenopathy. 6. Noncalcified nodule left lower lobe medially measuring 6 mm. Recommend 6 mo nth follow-up. Additional 3 mm nodule in the lingula. 7. No other significant findings.
== END 2020-06-18 06:23 | disposition home or self-care (01) ==
PROVIDERS: PCP Student in an Organized Health Care Education/Training Program; Visit Provider Urology
DX: N28.9 Disorder of kidney and ureter, unspecified (principal); Q61.01 Congenital single renal cyst; K76.0 Fatty (change of) liver, not elsewhere classified
CPT/HCPCS: 36415; 74178; 81003; 82565; 84520

== ENCOUNTER 2020-09-11 06:00 | Outpatient (RCR) | payer MEDICARE, OTHER, SELFPAY | END 2020-10-05 23:59 | disposition home or self-care (01) | LOC: SPT 06:00 | PROVIDERS: PCP Student in an Organized Health Care Education/Training Program; Referring Provider Specialist; Visit Provider Specialist | DX: R42 Dizziness and giddiness (principal) | CPT/HCPCS: 97112; 97162 ==

== ENCOUNTER → 2023-01-26 08:24 | Outpatient (BNVA) | payer MEDICARE, OTHER, SELFPAY | PROVIDERS: PCP Student in an Organized Health Care Education/Training Program; Visit Provider Specialist | DX: M75.102 Unspecified rotator cuff tear or rupture of left shoulder, not specified as traumatic (principal); M12.812 Other specific arthropathies, not elsewhere classified, left shoulder | CPT/HCPCS: 73030; 99204 ==

== ENCOUNTER 2023-02-17 09:42 | Outpatient (CLI) | payer MEDICARE, OTHER, SELFPAY ==
--- NOTE | 2023-02-17 10:00 | IR_ITS ---
WS: [id number] Left shoulder arthrogram, 02/17/2023 Clinical Data: left shoulder pain Comparison: None. Fluoroscopy time: 1min [id number] # of spot films: 2 Findings: With the usual technique, a 22-gauge small spinal needle was inserted into the left shoulder joint. A fter localizing the needle tip with 1 mL of Omnipaque at a concentration of 240 mg/mL, an injection o f 10 mL mL of Omnipaque was done. The shoulder joint shows a normal outline. No evidence of a rotator cuff tear could be seen. IR/IR arthrogram shoulderLT [id number] Impression: Satisfactory injection of Omnipaque into the left shoulder joint for preparatio n for CT left shoulder arthrogram.
--- NOTE | 2023-02-17 10:00 | CT_ITS ---
WS: [id number] CT scan of the left shoulder. Additional two-dimensional coronal and sagittal reconstruction was perf ormed. MIP images were also performed. 02/17/2023 Clinical Data: left shoulder pain Comparison: None. DLP: 242.[address] scans at [facility] use at least one of these dose optimization techniques: automated e xposure control; mA and/or kV adjustment per patient size (includes targeted exams where dose is matc hed to clinical indication); or iterative reconstruction. Findings: After injection of 10 mL of Omnipaque 240 and 10 mL of saline into the left shoulder joint there is n o evidence of a rotator cuff tear. The biceps tendon was not outlined in the bicipital groove and the re may be displacement. The glenohumeral joint is narrow. There are orthopedic anchors in the left hu meral head. There are erosive changes of the greater tuberosity with an irregular cortical surface. T he AC joint shows moderate osteoarthritis. CT/CT shoulder LT w con [id number] Impression: 1. No rotator cuff tear. 2. Narrow glenohumeral joint with irregularity and erosion of the greater tuber osity. 3. Possible displacement of long head of the biceps from the bicipital groove.
== END 2023-02-17 09:43 | disposition home or self-care (01) ==
LOC: RAD 09:43
PROVIDERS: PCP Student in an Organized Health Care Education/Training Program; Visit Provider Specialist
DX: M25.512 Pain in left shoulder (principal); R93.7 Abnormal findings on diagnostic imaging of other parts of musculoskeletal system
CPT/HCPCS: 23350; 73201; 77002; Q9966

== ENCOUNTER → 2023-03-23 08:02 | Outpatient (BNVA) | payer MEDICARE, OTHER, SELFPAY | PROVIDERS: PCP Student in an Organized Health Care Education/Training Program; Visit Provider Specialist | DX: M19.012 Primary osteoarthritis, left shoulder (principal) | CPT/HCPCS: 99213 ==

== ENCOUNTER → 2023-06-27 08:49 | Outpatient (BNVA) | payer MEDICARE, OTHER, SELFPAY | PROVIDERS: PCP Student in an Organized Health Care Education/Training Program; Visit Provider Specialist | DX: M19.012 Primary osteoarthritis, left shoulder (principal); M75.102 Unspecified rotator cuff tear or rupture of left shoulder, not specified as traumatic | CPT/HCPCS: 99213 ==

== ENCOUNTER → 2023-08-22 10:00 | Outpatient (BNVA) | payer MEDICARE, OTHER, SELFPAY | PROVIDERS: PCP Pediatrics; Visit Provider Internal Medicine Cardiovascular Disease | DX: I10 Essential (primary) hypertension (principal); E11.9 Type 2 diabetes mellitus without complications; Z79.4 Long term (current) use of insulin; K21.9 Gastro-esophageal reflux disease without esophagitis; G43.711 Chronic migraine without aura, intractable, with status migrainosus; E78.5 Hyperlipidemia, unspecified | CPT/HCPCS: 99203 ==

== ENCOUNTER 2023-09-02 12:19 | Outpatient (CLI) | payer MEDICARE, OTHER, SELFPAY ==
--- NOTE | 2023-09-02 12:45 | USCV_ITS ---
Ghada Carlson Age: 77 Gender: F : 1945 Exam Date: 09/02/2023 13:11 Ordering Phys: Garth Mccarthy MD ([email or web address]) Technologist: SIMEON Exam Location: [facility] [place] Indication: Stenosis Risk Factors: Previous Vascular Surgery: Right Brachial BP: / Left Brachial BP: / Right Left Velocity (cm/s) Spectral Plaque Velocity (cm/s) Spectral Plaque Syst/Diast Broadening Syst/Diast Broadening 63.90/ 13.20 Prox CCA 73.50 / 12.80 79.40/ 18.70 Mid CCA 76.00 / 12.00 65.10/ 13.20 Distal CCA 93.10 / 15.40 70.90/ 23.30 Prox ICA 37.40 / 12.20 77.90/ 21.30 Mid ICA 76.00 / 23.90 96.20/ 29.40 Distal ICA 68.40 / 23.10 82.70 ECA 100.00 1.21 ICA/CCA 0.82 Antegrade Vertebral Antegrade 58.40/ 17.60 cm/s 59.80/ 14.50 cm/s Tri Subclavian Tri 114.7 132.3 0 0 CONCLUSIONS Right ICA stenosis <50%. Mild atheromatous plaque right carotid bulb/ICA. Left ICA stenosis <50%. Mild atheromatous plaque left carotid bulb/ICA. Normal antegrade Doppler flow noted in the right vertebral artery. Normal antegrade Doppler flow noted in the left vertebral artery. José Oneil MD (Electronically Signed) Final Date: 02 September 2023 15:48 S
== END 2023-09-02 12:20 | disposition home or self-care (01) ==
LOC: RAD 12:20
PROVIDERS: PCP Pediatrics; Visit Provider Internal Medicine Cardiovascular Disease
DX: I65.23 Occlusion and stenosis of bilateral carotid arteries (principal)
CPT/HCPCS: 93880

== ENCOUNTER → 2023-11-22 14:21 | Outpatient (BNVA) | payer MEDICARE, OTHER, SELFPAY | PROVIDERS: PCP Pediatrics; Visit Provider Nurse Practitioner Family | DX: E11.9 Type 2 diabetes mellitus without complications (principal); E55.9 Vitamin D deficiency, unspecified; I10 Essential (primary) hypertension | CPT/HCPCS: 80053; 80061; 82306; 83036; 83721 ==

== ENCOUNTER → 2024-01-11 09:01 | Outpatient (BNVA) | payer MEDICARE, OTHER, SELFPAY | PROVIDERS: PCP Nurse Practitioner Family; Visit Provider Nurse Practitioner Family | DX: I10 Essential (primary) hypertension (principal); Z79.4 Long term (current) use of insulin; E11.9 Type 2 diabetes mellitus without complications | CPT/HCPCS: 80053; 80061; 83036; 84443 ==

== ENCOUNTER → 2024-02-20 10:58 | Outpatient (BNVA) | payer MEDICARE, OTHER, SELFPAY | PROVIDERS: PCP Nurse Practitioner Family; Visit Provider Internal Medicine Cardiovascular Disease | DX: I10 Essential (primary) hypertension (principal); E78.5 Hyperlipidemia, unspecified; E11.9 Type 2 diabetes mellitus without complications; Z79.4 Long term (current) use of insulin; E55.9 Vitamin D deficiency, unspecified; G43.711 Chronic migraine without aura, intractable, with status migrainosus | CPT/HCPCS: 99213 ==

== ENCOUNTER → 2024-04-24 11:19 | Outpatient (BNVA) | payer MEDICARE, OTHER, SELFPAY | PROVIDERS: PCP Nurse Practitioner Family; Visit Provider Nurse Practitioner Family | DX: Z79.4 Long term (current) use of insulin (principal); E55.9 Vitamin D deficiency, unspecified; I10 Essential (primary) hypertension; E11.9 Type 2 diabetes mellitus without complications | CPT/HCPCS: 80053; 80061; 82306; 83036; 84443 ==

== ENCOUNTER 2024-05-04 13:45 | Outpatient (CLI) | payer MEDICARE, OTHER, SELFPAY ==
--- NOTE | 2024-05-04 14:15 | CT_ITS ---
WS: [id number] CT HEAD TECHNIQUE: Noncontrast CT of the head obtained from the skullbase to the vertex. CLINICAL INFORMATION: R51.9 - Headache, unspecified COMPARISON: None. DLP: 978.[address] scans at [facility] use at least one of these dose optimization techniques: automated e xposure control; mA and/or kV adjustment per patient size (includes targeted exams where dose is matc hed to clinical indication); or iterative reconstruction. FINDINGS: No evidence of intracranial hemorrhage or mass effect. Ventricular system and basal cisterns are mayers nt. Moderate small vessel changes with mild parenchymal volume loss. No extra-axial fluid collections . No evidence of mass or mass effect. Paranasal sinuses and mastoid air cells are well aerated. .Normal visualized soft tissues. CT/CT head wo con* [id number] IMPRESSION: 1. No evidence of intracranial hemorrhage or mass effect. 2. Moderate small vessel changes. Mild parenchymal volume loss. Findings simil ar to the prior MRI 2018 3. Vascular calcification. 4. No acute intracranial findings.
== END 2024-05-04 13:46 | disposition home or self-care (01) ==
LOC: RAD 13:46
PROVIDERS: PCP Nurse Practitioner Family; Visit Provider Nurse Practitioner Family
DX: R51.9 Headache, unspecified (principal); I67.89 Other cerebrovascular disease; I67.2 Cerebral atherosclerosis
CPT/HCPCS: 70450

== ENCOUNTER → 2024-07-25 10:32 | Outpatient (BNVA) | payer MEDICARE, OTHER, SELFPAY | PROVIDERS: PCP Nurse Practitioner Family; Visit Provider Nurse Practitioner Family | DX: I10 Essential (primary) hypertension (principal); E55.9 Vitamin D deficiency, unspecified; E11.9 Type 2 diabetes mellitus without complications; Z79.4 Long term (current) use of insulin; M54.50 Low back pain, unspecified | CPT/HCPCS: 80053; 80061; 82306; 83036; 83721 ==

== ENCOUNTER → 2024-08-14 13:52 | Outpatient (BNVA) | payer MEDICARE, OTHER, SELFPAY | PROVIDERS: PCP Nurse Practitioner Family; Visit Provider Nurse Practitioner Family | DX: E78.5 Hyperlipidemia, unspecified (principal); E11.9 Type 2 diabetes mellitus without complications; Z79.4 Long term (current) use of insulin | CPT/HCPCS: 80053; 84478 ==

== ENCOUNTER 2024-08-20 10:53 | Outpatient (CLI) | payer MEDICARE, OTHER, SELFPAY ==
--- NOTE | 2024-08-20 10:56 | XR_ITS ---
WS: [id number] XR knee RT 3V* [id number] REASON FOR EXAM: M25.561 - Pain in right knee FINDINGS: No fracture or focal bone lesion. Medial knee joint space is intact with minimal subchondral sclerosis. There is mild narrowing of the lateral knee joint space with mild subchondral sclerosis. Mild narrowing of the patellofemoral joint space with mild to moderate subchondral sclerosis and oste ophytosis of the patella. XR/XR knee RT 3V* [id number] IMPRESSION: Mild osteoarthritis of the right knee.
== END 2024-08-20 10:54 | disposition home or self-care (01) ==
LOC: RAD 10:55
PROVIDERS: PCP Nurse Practitioner Family; Visit Provider Nurse Practitioner Family
DX: M17.11 Unilateral primary osteoarthritis, right knee (principal); M25.761 Osteophyte, right knee; R93.6 Abnormal findings on diagnostic imaging of limbs; I10 Essential (primary) hypertension; E78.5 Hyperlipidemia, unspecified; E11.9 Type 2 diabetes mellitus without complications; Z79.4 Long term (current) use of insulin
CPT/HCPCS: 73562; 99213

== ENCOUNTER → 2024-08-30 10:24 | Outpatient (BNVA) | payer MEDICARE, OTHER, SELFPAY | PROVIDERS: PCP Nurse Practitioner Family; Visit Provider Nurse Practitioner Family | DX: I50.9 Heart failure, unspecified; R06.02 Shortness of breath; E78.5 Hyperlipidemia, unspecified | CPT/HCPCS: 80061 ==

== ENCOUNTER → 2024-09-19 08:18 | Outpatient (BNVA) | payer MEDICARE, OTHER, SELFPAY | PROVIDERS: PCP Nurse Practitioner Family; Visit Provider Specialist | DX: M17.11 Unilateral primary osteoarthritis, right knee (principal); G89.29 Other chronic pain | CPT/HCPCS: 73560; 73565; 99214 ==

== ENCOUNTER → 2024-11-13 10:37 | Outpatient (BNVA) | payer MEDICARE, OTHER, SELFPAY | PROVIDERS: PCP Nurse Practitioner Family; Visit Provider Nurse Practitioner Family | DX: E78.5 Hyperlipidemia, unspecified (principal); E11.9 Type 2 diabetes mellitus without complications; Z79.4 Long term (current) use of insulin | CPT/HCPCS: 80061; 83036 ==

== ENCOUNTER 2025-01-17 12:24 | Outpatient (CLI) | payer MEDICARE, OTHER, SELFPAY ==
--- NOTE | 2025-01-17 12:29 | XR_ITS ---
WS: [id number] Right knee, 3 views, 01/17/2025 Clinical Data: M25.569 - Pain in unspecified knee Comparison: AP both knees, right knee, 09/19/2024 Findings: No fractures or dislocations are seen. There is minimal lateral joint compartment narrowing. The patella shows no abnormalities. The soft tissues are unremarkable. XR/XR knee RT 3V* [id number] Impression: Minimal lateral joint compartment narrowing of the right knee.
== END 2025-01-17 12:25 | disposition home or self-care (01) ==
PROVIDERS: PCP Nurse Practitioner Family; Visit Provider Nurse Practitioner Family
DX: M25.561 Pain in right knee (principal)
CPT/HCPCS: 73562

== ENCOUNTER → 2025-02-11 07:52 | Outpatient (BNVA) | payer MEDICARE, OTHER, SELFPAY | PROVIDERS: PCP Nurse Practitioner Family; Visit Provider Specialist | DX: M17.11 Unilateral primary osteoarthritis, right knee (principal); G89.29 Other chronic pain | CPT/HCPCS: 73560; 73565 ==

== ENCOUNTER 2025-02-11 09:38 | Outpatient (CLI) | payer MEDICARE, OTHER, SELFPAY | END 2025-02-11 09:39 | disposition home or self-care (01) | LOC: SPT 09:39 | PROVIDERS: PCP Nurse Practitioner Family; Visit Provider Specialist | DX: Z46.89 Encounter for fitting and adjustment of other specified devices (principal); M25.561 Pain in right knee | CPT/HCPCS: 97760; 99214; L1812 ==

== ENCOUNTER → 2025-02-12 08:26 | Outpatient (BNVA) | payer MEDICARE, OTHER, SELFPAY | PROVIDERS: PCP Nurse Practitioner Family; Visit Provider Nurse Practitioner Family | DX: E78.5 Hyperlipidemia, unspecified (principal); Z79.4 Long term (current) use of insulin; E11.9 Type 2 diabetes mellitus without complications | CPT/HCPCS: 80061; 83036 ==

== ENCOUNTER → 2025-02-18 14:36 | Outpatient (BNVA) | payer MEDICARE, OTHER, SELFPAY | PROVIDERS: PCP Nurse Practitioner Family; Visit Provider Internal Medicine | DX: I10 Essential (primary) hypertension (principal); E78.5 Hyperlipidemia, unspecified; E11.9 Type 2 diabetes mellitus without complications; Z79.4 Long term (current) use of insulin; E55.9 Vitamin D deficiency, unspecified; G43.711 Chronic migraine without aura, intractable, with status migrainosus; Z79.82 Long term (current) use of aspirin | CPT/HCPCS: 99214 ==

== ENCOUNTER 2025-02-19 09:32 | Outpatient (CLI) | payer MEDICARE, OTHER, SELFPAY ==
--- NOTE | 2025-02-19 09:45 | CT_ITS ---
WS: [id number] CT RIGHT KNEE, NONCONTRAST TECHNIQUE: Noncontrast CT of the RIGHT knee to include the RIGHT hip and ankle. CLINICAL INFORMATION: Per [facility] PROTOCOL DLP: 914.[address] scans at [facility] use at least one of these dose optimization techniques: automated exposure control; mA and/or kV adjustment per patient size (includes targeted exams where dose is matched to clinical indication); or iterative reconstruction. FINDINGS: Moderate to advanced arthritis RIGHT knee worse in the lateral joint compartment. Hypertrophic change along the joint line. Moderate suprapatellar effusion. Hypertrophic patella. Vascular calcification. Degenerative arthritis sacroiliac joints. Moderate degenerative arthritis both hips. Sigmoid diverti culosis. CT/CT knee RT [facility] [id number] IMPRESSION: Images obtained for preoperative purposes.
== END 2025-02-19 09:33 | disposition home or self-care (01) ==
LOC: RAD 09:33
PROVIDERS: PCP Nurse Practitioner Family; Visit Provider Specialist
DX: M17.11 Unilateral primary osteoarthritis, right knee (principal)
CPT/HCPCS: 73700

== ENCOUNTER 2025-02-27 06:29 | Outpatient (CLI) | payer MEDICARE, OTHER, SELFPAY ==
--- NOTE | 2025-02-27 | ECG_ITS ---
[facility] Date: 2025-02-27 Pat Name: Ghada Carlson Department: Room: Gender: Female [employer] Food: : 1945 Requested By: Efrem Sullivan Order Number: [id number] Gayle MD: MINI CASEY Interpretive Statements Lung unchanged pre/post procedure; Intraprocedure shortess of breath; Symptoms resoled by discharge NOTE: Please note that this is the electrocardiogram portion of the Lexiscan/Sestamibi stress test. The perfusion scan will be documented separately. DATA: Baseline heart rate was 67 beats per minute. Baseline blood pressure was 185/75 millimeters of mercury. Target heart rate was 142. Maximum heart rate achieved was 131. which was 92 % of the predicted target heart rate. Maximum blood pressure was 185/75 millimeters of mercury. The reason for ending the test was completion of the protocol. The patient did not experience any symptoms. ELECTROCARDIOGRAM: BASELINE: Sinus rhythm. Left right bundle branch block axis. Otherwise, no ST-T changes suggestive of ischemia noted. No arrhythmia noted. EXERCISE: After Lexiscan injection, no ST-T changes suggestive of ischemic noted. No arrhythmia noted. CONCLUSION: Please note due to baseline abnormality of the EKG specificity and sensitivity of the EKG portion of LexiScan MIBI stress test will be low 1. EKG not suggestive of ischemia 2. Lexiscan injection unremarkable. 3. Perfusion scan will be documented separately. Electronically Signed On 03-13-2025 19:54:26 CDT by MINI CASEY [email or web address]
[2025-02-27 06:40] VITALS: BMI 34.3
--- NOTE | 2025-02-27 06:43 | NMCV_ITS ---
NM tony perf SPECT r/s* [id number] Ghada Carlson Age: 79 Gender: F : 1945 Exam Date: 02/27/2025 07:42 Ordering Phys: Efrem Sullivan M.D ([email or web address]) Technologist: EVERETTE Castillo Exam Location: [facility] Indications: CP STRESS TEST [facility] IMAGE PROTOCOL Rest/Stress 1 Lexiscan Day Radiopharmaceutical Dose (mCi) Administration Site Administered by Rest: Tc-99m 10.6 IV EVERETTE Schulz Sestamibi Stress:Tc-99m 32.8 IV EVERETTE Schulz Sestamibi Rest: 27-Feb-2025 60 Discovery 630 Stress: 27-Feb-2025 30 Discovery 630 0.4mg Lexiscan. Images obtained in supine and prone position. SPECT RESULTS Technical Quality: Good Raw Data Analysis: Normal Image Corrections: No attenuation or motion correction applied Summed Stress Score: 0 Summed Rest Score: 2 Summed Difference Score: 0 PERFUSION FINDINGS SPECT images demonstrate homogeneous tracer distribution throughout the myocardium. FUNCTIONAL RESULTS (calculated via Gated SPECT) Stress Image LV EF (%): 80 Stress EDV (mL):70 TID: 0.81 Stress ESV (mL):14 Rest Image LV EF (%): 65 FUNCTIONAL FINDINGS: There is normal left ventricular systolic function. IMPRESSIONS Myocardial perfusion imaging is normal. Antonia Paige MD (Electronically Signed) Final Date: 27 February 2025 16:56 S
[2025-02-27 08:39] VITALS: BP 138/88; PULSE 88
== END 2025-02-27 06:30 | disposition home or self-care (01) ==
LOC: CDL 06:33
PROVIDERS: PCP Nurse Practitioner Family; Visit Provider Internal Medicine
DX: R07.9 Chest pain, unspecified (principal); R06.02 Shortness of breath
CPT/HCPCS: 36415; 78452; 93017; 96374; A9500; J2785

== ENCOUNTER 2025-03-01 09:32 | Outpatient (CLI) | payer MEDICARE, OTHER, SELFPAY ==
--- NOTE | 2025-03-01 10:15 | CT_ITS ---
WS: [id number] CT RIGHT knee, noncontrast HISTORY: M25.561 - Pain in right knee TECHNIQUE: Protocol for [facility] total knee replacement has been obtained. This includes axial imaging through the RIGHT hip, RIGHT knee and RIGHT ankle. DLP: 838.62 mGy.cm COMPARISON: Radiograph 02/11/2025 RIGHT hip: Mild motion artifact. Mild narrowing of the hip joint. No destructive bone lesion. RIGHT knee: Mild to moderate tricompartment joint space narrowing, greatest involving the lateral compartment. Small marginal osteophytes. No destructive bone lesions. Small suprapatellar joint effusion. Moderate plaque in the popliteal artery. RIGHT ankle: Negative. CT/CT knee RT [facility] [id number] IMPRESSION: CT imaging provided for [facility] robotic total knee replacement.
== END 2025-03-01 09:33 | disposition home or self-care (01) ==
LOC: RAD 09:33
PROVIDERS: PCP Nurse Practitioner Family; Visit Provider Specialist
DX: M25.561 Pain in right knee (principal); G89.29 Other chronic pain
CPT/HCPCS: 73700

== ENCOUNTER 2025-03-11 13:25 | Outpatient (CLI) | payer MEDICARE, OTHER, SELFPAY ==
[2025-03-11 14:28] LABS: Glucose Urine UA Negative (Normal); Nitrate Urine Negative (Negative); Specific Gravity, Urine 1.010 (1.005-1.030)
[2025-03-11 14:30] LABS: Hematocrit 44.7 % (36-47); Hemoglobin 14.40 g/dL (11.27-16.99); Mean Corpuscular HGB Conc 32.2 g/dL (30-55); Mean Corpuscular Hemoglobin 30.2 pg (27-33); Mean Corpuscular Volume 93.7 fl (85-98); Nucleated Red Blood Cells % 0 %; Platelet Count 251 10^3/cmm (157-399); Red Blood Count 4.77 10^6/uL (3.85-5.65); White Blood Count 7.90 10^3/uL (3.29-11.43)
[2025-03-11 14:33] LABS: Add Urine Microscopic? YES
[2025-03-11 14:41] LABS: Alanine Aminotransferase 9 U/L (0-33); Albumin Level 4.3 g/dL (3.5-5.2); Alkaline Phosphatase 117 U/L (35-105); Aspartate Amino Transferase 15 U/L (0-32); Blood Urea Nitrogen 30 mg/dL (8-23); Calcium 9.2 mg/dL (8.5-10.5); Carbon Dioxide 26 mmol/L (22-29); Chloride 106 mmol/L (98-107); Globulin 2.8 g/dL (1.3-4.6); Glucose 96 mg/dL (65-115); Osmolality Calculated 304 mOsm/kg (285-295); Sodium 144 mmol/L (136-145); Total Protein 7.1 g/dL (6.6-8.7); Triglycerides 246 mg/dL (0-150)
[2025-03-11 14:45] LABS: Anion Gap 16.5 (5-19); Potassium 4.5 mmol/L (3.5-5.1)
== END 2025-03-11 13:26 | disposition home or self-care (01) ==
LOC: LAB 13:28
PROVIDERS: PCP Nurse Practitioner Family; Visit Provider Specialist
DX: Z01.818 Encounter for other preprocedural examination (principal); E78.2 Mixed hyperlipidemia
CPT/HCPCS: 36415; 80053; 81001; 84478; 85025

== ENCOUNTER → 2025-03-29 10:00 | Outpatient (BNVA) | payer MEDICARE, OTHER, SELFPAY | PROVIDERS: PCP Nurse Practitioner Family; Visit Provider Family Medicine | DX: Z01.818 Encounter for other preprocedural examination (principal); R00.1 Bradycardia, unspecified; I45.10 Unspecified right bundle-branch block; I44.4 Left anterior fascicular block | CPT/HCPCS: 93005 ==

== ENCOUNTER 2025-04-02 10:51 | Observation (INO) | payer MEDICARE, OTHER, SELFPAY ==
[2025-04-02] VITALS (15 sets, daily range): BP systolic 122–181; BP diastolic 50–137; PULSE 57–70; RESP 15–18; TEMP 36.3–37.1; O2SAT 90–98; BMI 34.3
--- NOTE | 2025-04-02 06:12 | ANES.PREANE2 ---
Pre-Anesthetic Assessment Height/Weight: Height 5 ft Preop Diagnosis: Knee arthritis Operation Date: 04/02/25 07:00 Proposed Procedures p RIGHT Kevin Robot Total Knee Arthroplasty(Right) - Milagro Umana MD Was Beta Eric taken within 24 hours: Yes Was Clonidine taken within 24 hours: N/A Social No alcohol and No tobacco Exam alert, oriented x 3, clear to auscultation bilaterally and regular rate & rhythm Airway Submandibular: Other (Very small mouth opening) Cervical ROM: within normal limits Mallampati: Class III Dentition: full Comments: Comments: Multiple missing teeth, denies any loose Anesthetic Plan ASA status: 4 Anesthesia: General Other: No prior issues with anesthesia NPO since yesterday evening Patient has a very small mouth opening, has been told in the past that they had to do a nasal intubation due to inability to advance laryngoscope blade in the mouth History of IDDM, preop BS Spinal cord stimulator in place Hypertension on losartan and metoprolol Patient is on chronic dulaglutide, last taken 03/18/2025 GERD, controlled with Dex lansoprazole Plan for GETA with video laryngoscopy and possible fiberoptic Medications/Allergies Home Medications ?Medication ?Instructions ?Recorded ?Confirmed ?Last Taken ?Type PreserVision 1 tab PO BID 08/17/19 04/01/25 04/01/25 History cholecalciferol (vitamin D3) 25 1,000 unit PO DAILY 08/17/19 04/01/25 03/18/25 History mcg (1,000 unit) capsule cinnamon bark 500 mg capsule 500 mg PO BID 08/17/19 04/01/25 03/18/25 History coenzyme Q10 10 mg capsule (Co 10 mg PO DAILY 08/17/19 04/01/25 03/18/25 History Q-10) aspirin 81 mg tablet,delayed 81 mg PO DAILY 10/24/19 04/01/25 03/18/25 History release (Adult Aspirin Regimen) magnesium oxide 500 mg PO DAILY 10/29/19 04/01/25 04/01/25 History blood sugar diagnostic (Contour #100 ea 11/22/23 03/27/25 Unknown Rx Test Strips) dulaglutide 3 mg/0.5 mL 3 mg (0.5 mL) SUBCUT .weekly #12 mL 11/13/24 04/01/25 03/18/25 Rx subcutaneous pen injector (Trulicity) evolocumab 140 mg/mL subcutaneous 140 mg SUBCUT .q 2 weeks #6 mL 11/13/24 04/01/25 03/18/25 Rx pen injector (Mukund Sanders) furosemide 40 mg tablet 20 mg (1/2 x 40 mg) PO QAM #135 11/13/24 04/01/25 04/01/25 Rx tabs gabapentin 300 mg capsule 300 mg PO DAILY pain #90 caps 11/13/24 04/01/25 04/01/25 Rx insulin glargine U-300 conc 300 76 unit (0.2533 mL) SUBCUT Q24H 11/13/24 04/01/25 04/01/25 Rx unit/mL (3 mL) subcutaneous pen #30 mL (Toujeo Max U-300 SoloStar) pen needle, diabetic 31 gauge x #1,200 ea 11/13/24 03/27/25 Unknown Rx 10/21 dapagliflozin propanediol 10 mg 10 mg PO QAM #90 tabs 01/07/25 04/01/25 03/29/25 Rx tablet (Farxiga) dexlansoprazole 60 mg 60 mg PO DAILY #90 caps 01/07/25 03/29/25 04/01/25 Rx capsule,biphase delayed release (Dexilant) metoprolol succinate 100 mg 100 mg PO DAILY #90 tabs 01/07/25 04/02/25 04/02/25 Rx tablet,extended release 24 hr hinged knee brace, right #1 ea 02/11/25 03/27/25 Unknown Rx losartan 100 mg tablet 100 mg PO DAILY #90 tabs 03/27/25 04/01/25 04/01/25 Rx brimonidine 0.2 % eye drops 1 drp ophthalmic (eye) BID 03/29/25 04/01/25 Unknown History dorzolamide 2 % eye drops 1 drp ophthalmic (eye) TID 03/29/25 04/01/25 Unknown History prednisolone acetate 1 % eye 1 drp ophthalmic (eye) BID 03/29/25 04/01/25 Unknown History drops,suspension timolol 0.5 % eye drops 1 drp ophthalmic (eye) BID 03/29/25 04/01/25 Unknown History Allergies Allergy/AdvReac Type Severity Reaction Status Date / Time codeine Allergy Intermediate hives Verified 03/29/25 09:48 diazepam (From Valium) Allergy Intermediate hives Verified 03/29/25 09:48 tramadol Allergy Mild itching Verified 03/29/25 09:48 pseudoephedrine (From Allergy ALGY-Hives Verified 03/29/25 09:48 Actifed) triprolidine (From Actifed) Allergy ALGY-Hives Verified 03/29/25 09:48 [facility] Anesthesia Medical History Spinal cord stimulator status Neck pain Dyslipidemia Renal cyst, right GERD (gastroesophageal reflux disease) Type 2 diabetes mellitus Hypertension Lumbar postlaminectomy syndrome Patient is doing well after thoracic spinal cord stimulator implantation via laminotomy performed earlier today. She appears reasonable for discharge home, as desired. Lumbar disc disease Lesion of right chenega kidney Surgical History Status post hysteroscopic polypectomy (10/30/19) Hysteroscopy with polypectomy with MYOSURE, paracervical block; pathology was benign endometrium with endometrial polyp formation, no atypia, hyperplasia or malignancy identified. History of cataract surgery BILATERAL S/P rotator cuff repair History of lumbar surgery (09/13/19) Nuero stimulator History of back surgery 2003; [place], [place]; T11-L1 laminectomies. 1996; [place]; right L3-L4, L4-L5 decompression. Family History Other No pertinent family history Social History Smoking and tobacco/nicotine status: never used tobacco/nicotine Alcohol intake: never Substance/Drug Use: never Household members: spouse Marital status: Current occupational status: retired Data Anesthesia Cardiac Studies: Sestamibi Stress Test (Cardiology) 02/27/25
[2025-04-02] MEDS: acetaminophen 1,000 MG/100 ML PIGGYBACK 400 MG IV ×3 (06:27→20:33)
--- NOTE | 2025-04-02 07:02 | P.HPUD_ITS ---
Surgery/Procedure H&P Update DATE OF PROCEDURE: April 02, 2025 DATE H&P PERFORMED: 03/29/25 H&P UPDATE INFORMATION: I have reviewed H&P completed within last 30 days, I have examined patient prior to procedure, No changes to prior documentation, H&P is in [facility] EMR on date indicated and Risks and benefits of the procedure reviewed PREOP DIAGNOSIS: Right Knee arthritis PLANNED PROCEDURE: Operation Date: 04/02/25 07:00 Proposed Procedures p RIGHT Kevin Robot Total Knee Arthroplasty(Right) - Milagro Umana MD Related Problem List Diagnoses 1. Primary osteoarthritis of right knee:
[2025-04-02] MEDS: ceFAZolin 2,000 mg SDV 2000 MG IVP ×3 (07:07→23:14)
[2025-04-02] MEDS: tranexamic acid 1,000 mg/10mL SDV 1000 MG IV (07:25)
[2025-04-02] MEDS: ceFAZolin 2,000 mg SDV 2000 MG IRRIGATION (08:14)
[2025-04-02] MEDS: BUPivacaine liposome 13.3 mg/mL SDV 20 mL 266 MG INJECTION (08:20)
[2025-04-02] MEDS: BUPivacaine 0.5% INJ 10 mL 20 ML INJECTION (08:20)
[2025-04-02] MEDS: fentaNYL 50 mcg/mL INJ 2mL IVP (10:15)
--- NOTE | 2025-04-02 10:17 | XRR_ITS ---
PROCEDURE INFORMATION: Exam: XR Right Knee Exam date and time: 04/02/2025 10:17 AM Age: 79 years old Clinical indication: Device placement; Joint replacement hardware; Prior surgery; Surgery date: Post-operative (0-2 days); Surgery type: RT knee; Additional info: Status post right total knee arthroplasty TECHNIQUE: Imaging protocol: Radiologic exam of the right knee. Views: 1 or 2 views. COMPARISON: CT knee RT [facility] [id number] 03/01/2025 10:13 AM FINDINGS: Bones/joints: Three-part knee prosthesis in anatomic alignment. Anterior soft tissue swelling and gas consistent with recent surgery. Superior patellar enthesopathy. No fractures. Soft tissues: See Bones/joints finding. XR/XR knee RT 1-2V [id number] IMPRESSION: Knee prosthesis in anatomic alignment.
--- NOTE | 2025-04-02 10:32 | PM.OP ---
Operative Report Date of procedure: April 02, 2025 Pre-op diagnosis: Primary osteoarthritis right knee with valgus deformity and slight flexion contracture Post-op diagnosis: Primary osteoarthritis right knee with valgus deformity and slight flexion contracture Post-op findings: Areas with complete cartilage denudement, osteophytes and valgus deformity Procedure done: Right total knee arthroplasty with Kevin guidance Implants: The Gato total knee system with a size 3 triathlon beaded cruciate retaining femur right, a triathlon titanium tibial component size 2 beaded, a triathlon X3 tibial bearing CS insert size 2 x 10 mm and a beaded triathlon titanium asymmetric patella size 29 x 9 mm Specimens removed/disposition: Bone, disposed of Pathology: None Surgeon: Milagro Umana MD Drop Hammer Operator Helper: Mahnaz Mares, nurse practitioner, whose services were required for positioning, exposure, placement of the prosthesis, retraction, and wound closure. Anesthesia: General (Intubated, ASA 4) Estimated blood loss (mL): 170 Tourniquet time (min): 0 (Not utilized) IV fluids (mL): 1,500 Urine output (mL): 350 Complications: None Findings: As noted above, severe degenerative osteoarthritic change with valgus deformity. Condition: stable Disposition: PACU (Then admit under observation status to floor for postoperative rehabilitation and pain management) Brief History: This 79-year-old woman presented to the office complaining of right knee pain and swelling. She rated her pain a 7 of 10. This was worsening pain, and after discussion and review of x-rays in the office, the patient wished to proceed with right total knee arthroplasty. She was having limitations in her activities of daily living. Risk and complications were discussed with her. Consents were signed and questions were answered. Procedure: The patient was brought to the operating theater, and after undergoing general anesthesia, intubated, ASA for, the right lower extremity was prepped with Dura-Prep and draped in usual fashion following placement of a tourniquet high on the leg. The leg was then draped free.? Tourniquet was not elevated throughout the surgical procedure. Prior to commencement of the procedure, a surgical pause was performed, and at the time of the surgical pause, we confirmed the site and side of surgery. Additionally, we confirmed the appropriate and timely administration of preoperative antibiotics, Ancef 2 g.?The availability of equipment was confirmed, and the patient's identity was verbalized as well. Following the surgical pause, an incision was made centering over the patella continuing proximally and distally as necessary to allow access to the knee joint. Prior to incision, assessment was made of the patient's leg, and there was noted to be valgus deformity with a slight flexion contracture. Dissection continued through skin and soft tissues using a scalpel. Hemostasis was obtained using electrocautery. The skin incision was followed by a median parapatellar arthrotomy. The leg was extended and the patella was able to be displaced laterally.? Appropriate arrays and markers were placed in appropriate position for use of the Kevin.? Preoperative planning had been accomplished and was discussed in detail with the Kevin sales representative womens health.? Intraoperative mapping of the femur and tibia was accomplished after the arrays were placed.? Internal markers were also placed.? Once we had accomplished the Kevin mapping, we began the appropriate resections for placement of the prosthesis.? The plan was for a cruciate retaining right total knee arthroplasty. Once appropriate mapping had been accomplished retraction was established using manual retraction and the Kevin leg positioner and retractors, the knee was evaluated.? There was significant osteoarthritic change as well as a valgus deformity and slight flexion contracture.? Intraoperative planning was adjusted based on this preoperative valgus deformity as well as balancing maneuvers. Appropriate bone resection was accomplished using the Kevin.? Initially, we addressed the tibia, and this was followed by the femur. Osteophytes were removed prior to this portion of the procedure.? We had performed a medial release at the beginning of the procedure to allow for placement of the array.? Proximal tibia was evaluated, and it was felt that appropriate size for the tibia was a size 2.? The size 2 tray was noted to fit nicely with good coverage.? Rim fit was accomplished with the size 2. A trial reduction was accomplished after osteophytes had been removed as well as the medial and lateral menisci.? We had removed the anterior cruciate ligament at the beginning of the case and preserved the posterior cruciate ligament.? Trial reduction was accomplished with a size 3 femoral cruciate retaining component, a size 3 tibial tray and a size 3 CS tibial bearing insert which was 9 mm thickness. Initially, the knee was tight in flexion and in extension, and therefore, we removed an additional 2 mm of bone and slight varus to address the balance of the knee. We then performed a trial with a 10 mm thick insert with the same tray and femoral components. With this insert, the knee was noted to be well-balanced. Alignment was felt to be appropriate as well.? Trial components were removed after the femur had been drilled.? Prior to removal of the tibial tray which had been pinned in position with appropriate rotation as determined by the Kevin plan, we broached the tibia.? Subsequently, the 4 drill holes were made for the prosthetic component.? All trial components were removed, and the wound was irrigated.? Plans were made for insertion of the prosthetic components.? Prior to this, the patella was manually prepared.? After resection of the articular surface with the jogging system, it was measured and measured a 29 mm patella.? We resected approximately 6 mm of patella.? Patellar height was restored with the patellar component. Once again, the wound was irrigated. The Tritanium tibia was impacted into position.? The beaded femur was then impacted into position in a cementless fashion. The CS tibial insert was placed prior to placement of the femoral component. The patella was pressed into position with a patellar clamp.? Exparel was injected about the components deep and superficially.? The knee was then copiously irrigated with betadine and saline and suctioned dry. Attention was then directed to closure. Closure was accomplished with 0 Vicryl in the fascial tissues.? The suture line of 0 Vicryl was supplemented with strata fix, #1, with a running suture from proximal to distal and a second running stitch from distal to proximal.? This was followed by Surgiflo and vancomycin powder.? Following this, a 2-0 Strata Fix was used in the subcutaneous tissues, and the skin was closed with 3-0 Strata fix.? Care was taken to assure an excellent subcutaneous as well as skin closure.? A sterile dressing was then placed consisting of Dermabond Prineo, OpSite, ABD, sterile soft roll, and an Stephen wrap including over the foot. The patient was returned the Recovery Room in a satisfactory condition. X-rays were obtained and reviewed there.? The patient will be discharged to the floor for postoperative rehabilitation and pain management. Related Problem List Diagnoses 1. Primary osteoarthritis of right knee: 2. Valgus deformity, not elsewhere classified, right knee:
[2025-04-02] MEDS: dorzolamide 2% Op Soln 10 mL Btl 1 DROP EYE-BOTH (16:13)
[2025-04-02] MEDS: chlorhexidine gluconate 0.12% Btl 473 mL 30 ML MUCOUS MEM ×2 (16:13→20:33)
[2025-04-02] MEDS: prednisoLONE 1% Op Susp 5 mL Btl 1 DROP EYE-BOTH (16:57)
[2025-04-02] MEDS: sennosides-docusate Tablet 2 TAB PO (16:58)
[2025-04-02] MEDS: mupirocin oint 22 gm 1 APPLIC NASAL (16:58)
[2025-04-02] MEDS: timolol 0.5% Op Soln 5 mL Btl 1 DROP EYEAFF (17:16)
[2025-04-02] MEDS: brimonidine 0.2% Op Soln 5 mL Btl 1 DROP EYE-LEFT (17:16)
[2025-04-02] MEDS: dorzolamide 2% Op Soln 10 mL Btl 1 DROP EYE-LEFT (20:30)
[2025-04-03] VITALS (8 sets, daily range): BP systolic 113–138; BP diastolic 55–63; PULSE 55–66; RESP 14–18; TEMP 36.6–37.1; O2SAT 95–99
[2025-04-03 05:21] LABS: Hematocrit 34.2 % (36-47); Hemoglobin 10.70 g/dL (11.27-16.99); Mean Corpuscular HGB Conc 31.3 g/dL (30-55); Mean Corpuscular Hemoglobin 30.5 pg (27-33); Mean Corpuscular Volume 97.4 fl (85-98); Nucleated Red Blood Cells % 0 %; Platelet Count 203 10^3/cmm (157-399); Red Blood Count 3.51 10^6/uL (3.85-5.65); White Blood Count 12.20 10^3/uL (3.29-11.43)
[2025-04-03 05:36] LABS: Anion Gap 15.8 (5-19); Blood Urea Nitrogen 27 mg/dL (8-23); Calcium 8.6 mg/dL (8.5-10.5); Carbon Dioxide 19 mmol/L (22-29); Chloride 104 mmol/L (98-107); Creatinine Clr Calc Pharmacy 34.6066; Glucose 156 mg/dL (65-115); Osmolality Calculated 286 mOsm/kg (285-295); Potassium 4.8 mmol/L (3.5-5.1); Sodium 134 mmol/L (136-145)
[2025-04-03] MEDS: oxyCODONE 5 mg IR Tab/Cap PO ×2 (06:15→11:03)
[2025-04-03] MEDS: acetaminophen 1,000 MG/100 ML PIGGYBACK 400 MG IV (06:16)
[2025-04-03] MEDS: ceFAZolin 2,000 mg SDV 2000 MG IVP (06:17)
[2025-04-03] MEDS: multivitamin therapeutic Tablet 1 TAB PO (09:06)
[2025-04-03] MEDS: sennosides-docusate Tablet 2 TAB PO (09:06)
[2025-04-03] MEDS: metoprolol succinate ER (24 HR) 100 mg Tablet PO (09:06)
[2025-04-03] MEDS: chlorhexidine gluconate 0.12% Btl 473 mL 30 ML MUCOUS MEM (09:11)
[2025-04-03] MEDS: prednisoLONE 1% Op Susp 5 mL Btl 1 DROP EYE-LEFT (09:13)
[2025-04-03] MEDS: timolol 0.5% Op Soln 5 mL Btl 1 DROP EYEAFF (09:13)
[2025-04-03] MEDS: dorzolamide 2% Op Soln 10 mL Btl 1 DROP EYE-LEFT (09:13)
[2025-04-03] MEDS: brimonidine 0.2% Op Soln 5 mL Btl 1 DROP EYE-LEFT (09:14)
--- NOTE | 2025-04-03 13:16 | P.DS_ITS ---
Discharge Providers Date of Admission: 04/02/25 10:51 Date of Discharge: April 03, 2025 Attending Provider at Admission: Milagro Umana MD Attending Provider at Discharge: Milagro Umana MD Primary Care Provider: ANAM Reese Diagnoses at Discharge Discharge Diagnosis 1. Status post total right knee replacement not using cement: 2. Primary osteoarthritis of right knee: 3. Valgus deformity, not elsewhere classified, right knee: Reason for Visit Reason for Visit: M17.11 Brief History: This 79-year-old woman presented to the office complaining of right knee pain and swelling. She rated her pain a 7 of 10. This was worsening pain, and after discussion and review of x-rays in the office, the patient wished to proceed with right total knee arthroplasty. She was having limitations in her activities of daily living. Risk and complications were discussed with her. Consents were signed and questions were answered. Hospital Course Hospital Course This 79-year-old woman was admitted under observation status following right total knee arthroplasty. She did well with her postoperative rehabilitation. She had no complaints and no evidence of DVT. Plans were made for her discharge to home. She was felt safe, and therefore was discharged uneventfully. Physical Exam Const: COMMON NORMALS: no acute distress, average body habitus, patient oriented x3 and alert GENERAL APPEARANCE: cooperative and comfortable ORIENTATION/CONSCIOUSNESS: Yes awake HENMT: COMMON NORMALS: normocephalic and atraumatic HEAD & SCALP: normocephalic and atraumatic Eye: GENERAL EYE: appearance normal, both eyes and all related structures Chest: COMMONS NORMALS: normal inspection of the chest Resp: COMMON NORMALS: normal respiratory effort EFFORT & INSPECTION: Yes able to speak in complete sentences and Yes symmetric chest movement Extremity: RIGHT LOWER EXTREMITY: Yes knee joint (Slight swelling and ecchymosis. No evidence of DVT) Right knee: Yes inspection (Minimal swelling), Yes palpation (Minimal pain to palpation), Yes ROM (Not evaluated) and Yes neurovascular exam (Intact distally with no evidence of DVT) Neuro: COMMON NORMALS: patient oriented x3 SENSORIUM/ORIENTATION: Yes alert Psych: COMMON NORMALS: mental status grossly normal APPEARANCE: Yes grossly normal ATTITUDE: Yes calm and Yes engaged ATTENTION/CONCENTRATION: Yes attention grossly intact Skin: COMMON NORMALS: no rashes or lesions noted GENERAL SKIN EXAM: no rashes or lesions noted Urinary Catheter Management: Kumari: Cath Placed During This Visit: yes, but has since been removed by the nurse Reason for Continuing Indwelling Catheter: Perioperative Use in Selected Surgeries Urinary Catheter Date of Insertion: 04/02/25 Urinary Catheter Time of Insertion: 07:40 Date Urinary Catheter Removed: 04/03/25 Time Urinary Catheter Discontinued: 06:34 Discharge Data Studies Completed and Pending Completed Studies During Hospitalization Category Date Time Status XR knee RT 1-2V 47581 Routine Exams 04/02/25 10:17 Completed Radiology Impressions Knee X-Ray 04/02/25 10:17 IMPRESSION: Knee prosthesis in anatomic alignment. Laboratory Results WBC 12.20 10^3/uL (3.29-11.43) H 04/03/25 04:26 RBC 3.51 10^6/uL (3.85-5.65) L 04/03/25 04:26 Hgb 10.70 g/dL (11.27-16.99) L 04/03/25 04:26 Hct 34.2 % (36-47) L 04/03/25 04:26 MCV 97.4 fl (85-98) 04/03/25 04:26 MCH 30.5 pg (27-33) 04/03/25 04: MCHC 31.3 g/dL (30-55) 04/03/25 04: RDW 13.8 % (12.1-15.1) 04/03/25 04:26 Plt Count 203 10^3/cmm (157-399) 04/03/25 04: MPV 10.4 fL (7.4-10.4) 04/03/25 04: Neut % (Auto) 76.8 % 04/03/25 04:26 Lymph % (Auto) 14.2 % 04/03/25 04:26 [place] % (Auto) 8.3 % 04/03/25 04:26 Eos % (Auto) 0.1 % 04/03/25 04:26 Baso % (Auto) 0.3 % 04/03/25 04:26 Neut # (Auto) 9.37 10^3/uL (1.8-7.7) H 04/03/25 04:26 Lymph # (Auto) 1.7 10^3/uL (0.8-4.8) 04/03/25 04:26 [place] # (Auto) 1.0 10^3/uL (0.2-0.9) H 04/03/25 04:26 Eos # (Auto) 0.0 10^3/uL (0.0-0.8) 04/03/25 04:26 Baso # (Auto) 0.0 10^3/uL (0.0-0.1) 04/03/25 04:26 Nucleated RBC % (auto) 0 % 04/03/25 04:26 Nucleated RBCs # 0.0 /100WBC 04/03/25 04:26 Sodium 134 mmol/L (136-145) L 04/03/25 04:26 Potassium 4.8 mmol/L (3.5-5.1) 04/03/25 04:26 Chloride 104 mmol/L (98-107) 04/03/25 04:26 Carbon Dioxide 19 mmol/L (22-29) L 04/03/25 04:26 Anion Gap 15.8 (5-19) 04/03/25 04:26 BUN 27 mg/dL (8-23) H 04/03/25 04:26 Creatinine 1.3 mg/dL (0.5-0.9) H 04/03/25 04:26 GFR Calculation Not Reportable 04/03/25 04:26 Glucose 156 mg/dL (65-115) H 04/03/25 04:26 POC Glucose 198 mg/dL (70-110) H 04/03/25 11:25 Calculated Osmolality 286 mOsm/kg (285-295) 04/03/25 04:26 Calcium 8.6 mg/dL (8.5-10.5) 04/03/25 04:26 Vitals Last Vital Signs Temp 98.0 F 04/03/25 11:41 Pulse 55 L 04/03/25 11:41 Resp 16 04/03/25 11:41 BP 138/60 04/03/25 11:41 Pulse Ox 99 04/03/25 11:41 O2 Del Method Room Air 04/03/25 04:00 Discharge Plan Discharge Patient Disposition: Home Health Service Condition: Stable Prescriptions: New celecoxib 200 mg Capsule 200 mg PO 1XD 30 Days Qty: 30 0RF acetaminophen 500 mg Tablet 1,000 mg PO Q8H 15 Days Qty: 90 0RF aspirin 325 mg Tablet,Delayed Release (Dr/Ec) 325 mg PO DAILY 30 Days Qty: 0 0RF Continued cinnamon bark 500 mg capsule 500 mg PO BID cholecalciferol (vitamin D3) 1,000 unit capsule 1,000 unit PO DAILY coenzyme Q10 [Co Q-10] 10 mg capsule 10 mg PO DAILY (DME) hinged knee brace, right See Rx Instructions .Route .MEDSUPPLY Qty: 1 0RF Rx Instructions: As directed losartan 100 mg tablet 100 mg PO DAILY Qty: 90 3RF prednisolone acetate 1 % drops,suspension 1 drp ophthalmic (eye) BID timolol 0.5 % drops 1 drp ophthalmic (eye) BID brimonidine 0.2 % drops 1 drp ophthalmic (eye) BID dorzolamide 2 % drops 1 drp ophthalmic (eye) TID (DME) Contour Test Strips Strip See Rx Instructions .Route Qty: 100 1RF Rx Instructions: As directed furosemide 40 mg tablet 20 mg PO QAM Qty: 135 0RF Toujeo Max U-300 SoloStar 300 unit/mL (3 mL) insulin pen 76 unit SUBCUT Q24H Qty: 30 4RF Trulicity 3 mg/0.5 mL pen injector 3 mg SUBCUT .weekly Qty: 12 4RF Rx Instructions: dx code E11.9 Repatha SureClick 140 mg/mL pen injector 140 mg SUBCUT .q 2 weeks Qty: 6 0RF (DME) pen needle, diabetic 31 gauge x 3/16 needle See Rx Instructions .Route Qty: 1200 0RF Rx Instructions: As directed gabapentin 300 mg capsule 300 mg PO DAILY Qty: 90 0RF Farxiga 10 mg tablet 10 mg PO QAM Qty: 90 0RF dexlansoprazole [Dexilant] 60 mg capsule,biphase delayed releas 60 mg PO DAILY Qty: 90 0RF metoprolol succinate 100 mg tablet extended release 24 hr 100 mg PO DAILY Qty: 90 0RF magnesium oxide 500 mg Tablet 500 mg PO DAILY PreserVision AREDS 2,148 mcg-113 mg-45 mg-17.4mg Tablet 2 tab PO BID Rx Instructions: administer with AM and PM meals Held aspirin [Adult Aspirin Regimen] 81 mg tablet,delayed release (DR/EC) 81 mg PO DAILY Hold Instructions: Please take regular strength aspirin, 325 mg, for 1 month, then you may resume your 81 mg Discharge Order = DC NOW: Discharge Order (Routine); Ordered 04/03/25 Ordered By: Milagro Umana Other Ambulatory Orders: DME: Walker (Order) Location: None Selected Ordered By: Milagro Umana Referrals: [facility] [Outside] [facility] [Outside] Milagro Umana MD [Physician, Orthopedics] - 04/15/25 3:15 pm Discharge Diet: Advance as tolerated and Usual diet Discharge Activity: Increase activity as tolerated, Limit activity as instructed, Use walker/crutches as instructed and As per PT/OT instructions Patient Instructions: Aspirin (By mouth), Celecoxib (By mouth), Acute Wound Care (DC), Total Knee Replacement (GEN), Post Anesthesia Care Activity Restrictions/Additional Instructions: You may shower and get your knee wet, but do not submerge it in water. Do not go into a turner, pool, river, or submerge in bath water. Weightbearing as tolerated. Range of motion, strengthening, and gait training per physical therapy. Discharge Attestations Time Spent in Discharge Care*: greater than 30 min Specific Discharge Activities: educating patient, documenting/other paperwork and evaluating patient/reviewing data Quality Metrics Clinical Quality Measures [ No reported AMI, CVA or VTE this stay] Coding Level of Care Code Acute Code for Chg Fwd Diagnoses Status post total right knee replacement not using cement Z96.651 Primary osteoarthritis of right knee M17.11 Valgus deformity, not elsewhere classified, right knee M21.061
--- NOTE | 2025-04-03 14:17 | PC.NURSE ---
Discharge Note Patient discharged to home with home health via private vehicle accompanied by . Discharge instructions reviewed with patient and/or patient support representative. Mobile pharmacy medications and/or prescriptions provided. Belongings/home medications returned.
== END 2025-04-03 14:47 | disposition home health service (06) ==
LOC: MEDSURG 10:52
PROVIDERS: Admitting Provider Specialist; PCP Nurse Practitioner Family; Visit Provider Specialist
PROC: 8E0Y0CZ Robotic Assisted Procedure of Lower Extremity, Open Approach (ICD-10-PCS; CPT 27447; principal; 2025-04-02 07:00)
DX: M17.11 Unilateral primary osteoarthritis, right knee (principal); M21.061 Valgus deformity, not elsewhere classified, right knee; M24.561 Contracture, right knee; M25.761 Osteophyte, right knee; Z79.82 Long term (current) use of aspirin; I10 Essential (primary) hypertension; K21.9 Gastro-esophageal reflux disease without esophagitis; E11.9 Type 2 diabetes mellitus without complications
CPT/HCPCS: 27447; 20985; 36415; 36416; 51702; 73560; 80048; 82962; 85025; 96372; 97110; 97116; 97161; 97167; A4216; C1776; G0378; J0131; J0666; J0690; J1100; J1171; J1815; J2405; J2704; J3010; J3373; J3490; J7030; J9999

== ENCOUNTER → 2025-04-15 15:02 | Outpatient (BNVA) | payer MEDICARE, OTHER, SELFPAY | PROVIDERS: PCP Nurse Practitioner Family; Visit Provider Nurse Practitioner | DX: Z98.890 Other specified postprocedural states (principal); Z96.651 Presence of right artificial knee joint | CPT/HCPCS: 99024 ==

== ENCOUNTER → 2025-05-13 13:17 | Outpatient (BNVA) | payer MEDICARE, OTHER, SELFPAY | PROVIDERS: PCP Nurse Practitioner Family; Visit Provider Nurse Practitioner | DX: Z98.890 Other specified postprocedural states (principal); Z96.651 Presence of right artificial knee joint | CPT/HCPCS: 73560; 73565; 99024 ==

== ENCOUNTER → 2025-06-24 12:56 | Outpatient (BNVA) | payer MEDICARE, OTHER, SELFPAY | PROVIDERS: PCP Nurse Practitioner Family; Visit Provider Nurse Practitioner | DX: Z96.651 Presence of right artificial knee joint (principal); M79.604 Pain in right leg; M79.605 Pain in left leg; M79.661 Pain in right lower leg; M79.89 Other specified soft tissue disorders | CPT/HCPCS: 73560; 73565 ==

== ENCOUNTER 2025-06-24 14:39 | Outpatient (CLI) | payer MEDICARE, OTHER, SELFPAY | END 2025-06-24 14:40 | disposition home or self-care (01) | LOC: RAD 14:42 | PROVIDERS: PCP Nurse Practitioner Family; Visit Provider Nurse Practitioner | DX: M79.661 Pain in right lower leg (principal); M79.89 Other specified soft tissue disorders; Z96.651 Presence of right artificial knee joint; W19.XXXA Unspecified fall, initial encounter | CPT/HCPCS: 99214 ==

== ENCOUNTER → 2025-07-03 11:25 | Outpatient (BNVA) | payer MEDICARE, OTHER, SELFPAY | PROVIDERS: PCP Nurse Practitioner Family; Visit Provider Internal Medicine | DX: E78.5 Hyperlipidemia, unspecified (principal); I10 Essential (primary) hypertension; E11.9 Type 2 diabetes mellitus without complications; Z79.4 Long term (current) use of insulin; E55.9 Vitamin D deficiency, unspecified; G43.711 Chronic migraine without aura, intractable, with status migrainosus | CPT/HCPCS: 99213 ==

== ENCOUNTER → 2025-07-19 08:55 | Outpatient (BNVA) | payer MEDICARE, OTHER, SELFPAY | PROVIDERS: PCP Nurse Practitioner Family; Visit Provider Nurse Practitioner | DX: M25.561 Pain in right knee (principal); Z96.651 Presence of right artificial knee joint; Z47.89 Encounter for other orthopedic aftercare | CPT/HCPCS: 99213 ==